=== PATIENT | male | born 1995 | race Caucasian/White ===

== ENCOUNTER → 2019-01-20 13:44 | Outpatient (CLI) | payer OTHER, SELFPAY ==
--- NOTE | 2019-01-20 | DI.MRI.S_ITS ---
PROCEDURE: MR SHOULDER LT WO CON INDICATIONS: Pain in left shoulder TECHNIQUE: Noncontrast oblique coronal T2 fast spin echo with fat saturation, oblique sagittal T1 spin echo and T2 fast spin echo with fat saturation, axial T1 spin echo and T2 fast spin echo with fat saturation through the shoulder. COMPARISON: None. FINDINGS: Image quality: Excellent. Rotator cuff: Low grade bursal surface fraying of the footprint of the junction of the supraspinatus and infraspinatus tendons Otherwise, subscapularis and teres minor intact.. No atrophy of the rotator cuff musculature. Bones and bursae: No bone marrow contusions or fractures. Moderate hypertrophic acromioclavicular joint degeneration. The acromion demonstrates conventional anatomy, without an os acromiale. Mild subacromial-subdeltoid bursitis. Capsule and soft tissues: Irregularity of the posterior and posteroinferior labrum. There is adjacent glenoid degenerative change. No definite posterior subluxation of the humeral head relative to the glenoid The long head of the biceps tendon demonstrates normal location and morphology. The rotator interval appears normal, without fibrosis. The coracohumeral ligament is thickened. IMPRESSION: Low grade bursal surface fraying at the junction of the supraspinatus and infraspinatus tendons. Otherwise, no rotator cuff tear identified. Mild subacromial-subdeltoid bursitis Chronic posterior/posteroinferior labral tear. Mild adjacent segmental degenerative changes of the glenoid. Thickened appearance of the coracohumeral ligament, raising the possibility of adhesive capsulitis although technically nonspecific finding. Dictated by: Bib Magana M.D. on 01/20/2019 at 16:21 Approved by: Bib Magana M.D. on 01/20/2019 at 16:31
== END ==
PROVIDERS: Visit Provider Student in an Organized Health Care Education/Training Program
DX: M25.512 Pain in left shoulder (principal); M75.52 Bursitis of left shoulder
CPT/HCPCS: 73221

== ENCOUNTER → 2019-06-24 14:03 | Outpatient (CLI) | payer OTHER, SELFPAY ==
[2019-06-26 14:48] LABS: Tissue Transglutaminase IgA <2 U/mL (0-3); Tissue Transglutaminase IgG 7 U/mL (0-5)
== END ==
PROVIDERS: Referring Provider Internal Medicine; Visit Provider Internal Medicine
DX: R19.7 Diarrhea, unspecified (principal)
CPT/HCPCS: 36415; 82784; 83516